=== PATIENT | male | born 1930 | race Caucasian/White ===

== ENCOUNTER 2020-09-20 14:33 | Inpatient (IN) ==
[2020-09-20] MEDS: Ascorbic Acid 500 MG TABLET PO SCH (18:35)
[2020-09-20] MEDS: PrednisoLONE Acetate 1% Opth 5 ML BOTTLE LEFT EYE SCH ×3 (18:35→22:10)
[2020-09-20] MEDS: Latanoprost 2.5 ML BOTTLE LEFT EYE SCH (21:10)
[2020-09-20] MEDS: Apixaban 5 MG TABLET PO SCH (21:10)
[2020-09-20] MEDS: Sennosides/Docusate Sodium TABLET PO SCH (21:10)
[2020-09-21] MEDS: PrednisoLONE Acetate 1% Opth 5 ML BOTTLE LEFT EYE SCH ×12 (00:02→20:42)
[2020-09-21] MEDS: Aspirin Enteric Coated 81 MG Tablet PO SCH (08:50)
[2020-09-21] MEDS: Apixaban 5 MG TABLET PO SCH ×2 (08:51→20:40)
[2020-09-21] MEDS: Ascorbic Acid 500 MG TABLET PO SCH ×2 (08:51→16:45)
[2020-09-21] MEDS: *HR* LORazepam 1 MG TABLET PO SCH (08:52)
[2020-09-21] MEDS: Sennosides/Docusate Sodium TABLET PO SCH ×2 (08:52→20:40)
[2020-09-21] MEDS: Multivit/Ca/Min/Fe/FA 1 TAB TABLET PO SCH (08:52)
[2020-09-21] MEDS ORDERED: levoFLOXacin 750 MG TABLET PO SCH (09:00)
[2020-09-21 09:18] LABS: Basophils % 0.3 %; Eosinophils # 0.1 K/mcL (0.0-0.6); Eosinophils % 1.8 %; Hematocrit 28.7 % (37.5-50.1); Hemoglobin 9.2 g/dL (12.9-16.9); Immature Granulocytes % 1.5 % (0-4); Lymphocytes # 1.1 K/mcL (0.6-4.6); Lymphocytes % 13.7 %; Mean Corpuscular HGB Conc 32.1 g/dL (31.6-35.5); Mean Corpuscular Hemoglobin 32.6 pg (28.0-33.3); Mean Corpuscular Volume 101.8 fL (83.0-100.0); Mean Platelet Volume 9.8 fL (9.4-12.4); Monocytes # 0.9 K/mcL (0.0-1.3); Monocytes % 11.8 %; Neutrophils # 5.6 K/mcL (1.6-8.9); Platelet Count 342 K/mcL (140-400); Red Blood Count 2.82 M/mcL (4.19-5.50); Segmented Neutrophils % 70.9 %; White Blood Count 7.9 K/mcL (4.3-11.1)
[2020-09-21 09:21] LABS: BUN/Creatinine Ratio 22 (6-26); Blood Urea Nitrogen 21 mg/dL (8-23); Calcium 8.5 mg/dL (8.6-10.3); Carbon Dioxide 29 mEq/L (23-29); Chloride 100 mEq/L (98-107); Glucose 122 mg/dL (70-105); Osmolality,Calculated 286 (280-300); Potassium 4.1 mEq/L (3.5-5.1); Sodium 136 mEq/L (136-145); eGFR For African Americans > 60 (> 60); eGFR For Non-African Americans > 60 (> 60)
[2020-09-21] MEDS: Ringers Solution, Lactated 1,000 ML IVC SCH (16:53)
[2020-09-21] MEDS: Carbidopa/Levodopa 25/250 TABLET PO SCH (18:59)
[2020-09-21] MEDS: Latanoprost 2.5 ML BOTTLE LEFT EYE SCH (20:41)
[2020-09-22] MEDS: PrednisoLONE Acetate 1% Opth 5 ML BOTTLE LEFT EYE SCH ×6 (01:10→10:02)
[2020-09-22] MEDS: Carbidopa/Levodopa 25/250 TABLET PO SCH ×4 (01:10→17:51)
[2020-09-22 07:29] LABS: Alanine Aminotransferase 3 Units/L (7-52); Albumin 3.1 g/dL (3.5-5.7); Albumin/Globulin Ratio 1.3 (1.1-2.2); Alkaline Phosphatase 53 Units/L (34-104); Aspartate Amino Transferase 23 Units/L (13-39); BUN/Creatinine Ratio 21 (6-26); Bilirubin,Total 0.7 mg/dL (0.3-1.0); Blood Urea Nitrogen 22 mg/dL (8-23); Calcium 8.2 mg/dL (8.6-10.3); Carbon Dioxide 27 mEq/L (23-29); Chloride 104 mEq/L (98-107); Globulin 2.4 g/dL (2.4-3.5); Glucose 101 mg/dL (70-105); Magnesium 1.9 mg/dL (1.6-2.6); Osmolality,Calculated 287 (280-300); Potassium 3.9 mEq/L (3.5-5.1); Sodium 137 mEq/L (136-145); Total Protein 5.5 g/dL (6.4-8.9); eGFR For African Americans > 60 (> 60); eGFR For Non-African Americans > 60 (> 60)
[2020-09-22] MEDS: Ringers Solution, Lactated 1,000 ML IVC SCH ×2 (09:56→17:52)
[2020-09-22] MEDS: Ascorbic Acid 500 MG TABLET PO SCH ×2 (09:57→17:51)
[2020-09-22] MEDS: Sennosides/Docusate Sodium TABLET PO SCH ×2 (09:57→20:38)
[2020-09-22] MEDS: Apixaban 5 MG TABLET PO SCH ×2 (09:58→20:38)
[2020-09-22] MEDS: *HR* LORazepam 1 MG TABLET PO SCH (09:59)
[2020-09-22] MEDS: Aspirin Enteric Coated 81 MG Tablet PO SCH (09:59)
[2020-09-22] MEDS: Multivit/Ca/Min/Fe/FA 1 TAB TABLET PO SCH (09:59)
[2020-09-22] MEDS ORDERED: Bisacodyl 10 MG RECTAL SUPPOSITORY RC ONE (10:32)
[2020-09-22] MEDS ORDERED: PrednisoLONE Acetate 1% Opth 5 ML BOTTLE LEFT EYE PRN (10:41)
[2020-09-22] MEDS ORDERED: 0.9 % Sodium Chloride 250 ML ONE (18:55)
[2020-09-22] MEDS ORDERED: 0.9 % Sodium Chloride 250 ML IVC ONE (19:02)
[2020-09-22] MEDS: Latanoprost 2.5 ML BOTTLE LEFT EYE SCH (20:38)
[2020-09-23] MEDS: Carbidopa/Levodopa 25/250 TABLET PO SCH ×4 (00:05→17:20)
[2020-09-23 07:04] LABS: Alanine Aminotransferase 3 Units/L (7-52); Albumin 3.1 g/dL (3.5-5.7); Albumin/Globulin Ratio 1.2 (1.1-2.2); Alkaline Phosphatase 64 Units/L (34-104); Aspartate Amino Transferase 22 Units/L (13-39); BUN/Creatinine Ratio 23 (6-26); Bilirubin,Total 0.7 mg/dL (0.3-1.0); Blood Urea Nitrogen 22 mg/dL (8-23); Calcium 8.2 mg/dL (8.6-10.3); Carbon Dioxide 26 mEq/L (23-29); Chloride 103 mEq/L (98-107); Globulin 2.5 g/dL (2.4-3.5); Glucose 108 mg/dL (70-105); Magnesium 1.9 mg/dL (1.6-2.6); Osmolality,Calculated 286 (280-300); Potassium 4.1 mEq/L (3.5-5.1); Sodium 136 mEq/L (136-145); Total Protein 5.6 g/dL (6.4-8.9); eGFR For African Americans > 60 (> 60); eGFR For Non-African Americans > 60 (> 60)
[2020-09-23] MEDS: Sennosides/Docusate Sodium TABLET PO SCH ×2 (09:23→19:45)
[2020-09-23] MEDS: Apixaban 5 MG TABLET PO SCH ×2 (09:23→19:45)
[2020-09-23] MEDS: *HR* LORazepam 1 MG TABLET PO SCH (09:24)
[2020-09-23] MEDS: Multivit/Ca/Min/Fe/FA 1 TAB TABLET PO SCH (09:24)
[2020-09-23] MEDS: Aspirin Enteric Coated 81 MG Tablet PO SCH (09:25)
[2020-09-23] MEDS: Ascorbic Acid 500 MG TABLET PO SCH ×2 (09:25→17:20)
[2020-09-23] MEDS: Finasteride 5 MG TABLET PO SCH (13:53)
[2020-09-23] MEDS ORDERED: polyethylene glycoL 3350 17 GM POWD.PACK PO PRN (14:56)
[2020-09-23] MEDS: Latanoprost 2.5 ML BOTTLE LEFT EYE SCH (19:45)
[2020-09-24] MEDS: Carbidopa/Levodopa 25/250 TABLET PO SCH ×4 (01:49→18:30)
[2020-09-24] MEDS: Multivit/Ca/Min/Fe/FA 1 TAB TABLET PO SCH (07:48)
[2020-09-24] MEDS: Aspirin Enteric Coated 81 MG Tablet PO SCH (07:48)
[2020-09-24] MEDS: Finasteride 5 MG TABLET PO SCH (07:49)
[2020-09-24] MEDS: *HR* LORazepam 1 MG TABLET PO SCH (07:49)
[2020-09-24] MEDS: Ascorbic Acid 500 MG TABLET PO SCH ×2 (07:49→18:29)
[2020-09-24] MEDS: Apixaban 5 MG TABLET PO SCH ×2 (07:49→21:02)
[2020-09-24] MEDS: Sennosides/Docusate Sodium TABLET PO SCH ×2 (07:59→21:02)
[2020-09-24] MEDS: Latanoprost 2.5 ML BOTTLE LEFT EYE SCH (21:06)
[2020-09-25] MEDS: Carbidopa/Levodopa 25/250 TABLET PO SCH ×4 (01:01→18:03)
[2020-09-25] MEDS: Ascorbic Acid 500 MG TABLET PO SCH ×2 (09:34→17:14)
[2020-09-25] MEDS: *HR* LORazepam 1 MG TABLET PO SCH (09:34)
[2020-09-25] MEDS: Multivit/Ca/Min/Fe/FA 1 TAB TABLET PO SCH (09:34)
[2020-09-25] MEDS: Apixaban 5 MG TABLET PO SCH ×2 (09:34→20:14)
[2020-09-25] MEDS: Sennosides/Docusate Sodium TABLET PO SCH ×2 (09:34→20:18)
[2020-09-25] MEDS: Aspirin Enteric Coated 81 MG Tablet PO SCH (09:34)
[2020-09-25] MEDS: Finasteride 5 MG TABLET PO SCH (09:34)
[2020-09-25] MEDS: Latanoprost 2.5 ML BOTTLE LEFT EYE SCH (20:26)
[2020-09-26] MEDS: Carbidopa/Levodopa 25/250 TABLET PO SCH ×4 (05:13→17:16)
[2020-09-26] MEDS: Sennosides/Docusate Sodium TABLET PO SCH ×2 (08:30→20:55)
[2020-09-26] MEDS: Multivit/Ca/Min/Fe/FA 1 TAB TABLET PO SCH (08:31)
[2020-09-26] MEDS: Ascorbic Acid 500 MG TABLET PO SCH ×2 (08:31→15:43)
[2020-09-26] MEDS: Aspirin Enteric Coated 81 MG Tablet PO SCH (08:31)
[2020-09-26] MEDS: *HR* LORazepam 1 MG TABLET PO SCH (08:32)
[2020-09-26] MEDS: Apixaban 5 MG TABLET PO SCH ×2 (08:32→20:55)
[2020-09-26] MEDS: Finasteride 5 MG TABLET PO SCH (08:32)
[2020-09-26] MEDS: Latanoprost 2.5 ML BOTTLE LEFT EYE SCH (20:55)
[2020-09-27] MEDS: Carbidopa/Levodopa 25/250 TABLET PO SCH ×4 (00:30→18:46)
[2020-09-27 07:39] LABS: Basophils % 0.3 %; Eosinophils # 0.1 K/mcL (0.0-0.6); Eosinophils % 1.7 %; Hematocrit 29.6 % (37.5-50.1); Hemoglobin 9.4 g/dL (12.9-16.9); Immature Granulocytes % 0.4 % (0-4); Lymphocytes # 1.2 K/mcL (0.6-4.6); Lymphocytes % 14.9 %; Mean Corpuscular HGB Conc 31.8 g/dL (31.6-35.5); Mean Corpuscular Hemoglobin 32.5 pg (28.0-33.3); Mean Corpuscular Volume 102.4 fL (83.0-100.0); Mean Platelet Volume 9.6 fL (9.4-12.4); Neutrophils # 5.4 K/mcL (1.6-8.9); Platelet Count 318 K/mcL (140-400); Red Blood Count 2.89 M/mcL (4.19-5.50); Red Cell Distribution Width 15.1 % (11.5-14.5); Segmented Neutrophils % 69.7 %; White Blood Count 7.8 K/mcL (4.3-11.1)
[2020-09-27 08:00] LABS: BUN/Creatinine Ratio 24 (6-26); Blood Urea Nitrogen 20 mg/dL (8-23); Calcium 8.2 mg/dL (8.6-10.3); Carbon Dioxide 26 mEq/L (23-29); Chloride 103 mEq/L (98-107); Glucose 81 mg/dL (70-105); Magnesium 1.9 mg/dL (1.6-2.6); Osmolality,Calculated 286 (280-300); Potassium 3.9 mEq/L (3.5-5.1); Sodium 137 mEq/L (136-145); eGFR For African Americans > 60 (> 60); eGFR For Non-African Americans > 60 (> 60)
[2020-09-27] MEDS: Ascorbic Acid 500 MG TABLET PO SCH ×2 (09:18→18:46)
[2020-09-27] MEDS: Sennosides/Docusate Sodium TABLET PO SCH (09:18)
[2020-09-27] MEDS: Aspirin Enteric Coated 81 MG Tablet PO SCH (09:18)
[2020-09-27] MEDS: Apixaban 5 MG TABLET PO SCH ×2 (09:19→22:02)
[2020-09-27] MEDS: Finasteride 5 MG TABLET PO SCH (09:19)
[2020-09-27] MEDS: *HR* LORazepam 1 MG TABLET PO SCH ×2 (09:19→22:01)
[2020-09-27] MEDS: Multivit/Ca/Min/Fe/FA 1 TAB TABLET PO SCH (09:19)
[2020-09-27] MEDS: Latanoprost 2.5 ML BOTTLE LEFT EYE SCH (22:08)
[2020-09-28] MEDS: Carbidopa/Levodopa 25/250 TABLET PO SCH ×4 (01:39→17:14)
[2020-09-28] MEDS: Apixaban 5 MG TABLET PO SCH ×2 (09:37→21:56)
[2020-09-28] MEDS: Aspirin Enteric Coated 81 MG Tablet PO SCH (09:37)
[2020-09-28] MEDS: Multivit/Ca/Min/Fe/FA 1 TAB TABLET PO SCH (09:37)
[2020-09-28] MEDS: Finasteride 5 MG TABLET PO SCH (09:38)
[2020-09-28] MEDS: Ascorbic Acid 500 MG TABLET PO SCH ×2 (09:39→15:34)
[2020-09-28] MEDS: *HR* LORazepam 1 MG TABLET PO SCH (21:56)
[2020-09-28] MEDS: Latanoprost 2.5 ML BOTTLE LEFT EYE SCH (22:04)
[2020-09-29] MEDS: Carbidopa/Levodopa 25/250 TABLET PO SCH ×5 (00:48→23:45)
[2020-09-29] MEDS: Multivit/Ca/Min/Fe/FA 1 TAB TABLET PO SCH (09:47)
[2020-09-29] MEDS: Ascorbic Acid 500 MG TABLET PO SCH ×2 (09:47→16:53)
[2020-09-29] MEDS: Aspirin Enteric Coated 81 MG Tablet PO SCH (09:47)
[2020-09-29] MEDS: Apixaban 5 MG TABLET PO SCH ×2 (09:47→21:29)
[2020-09-29] MEDS: Finasteride 5 MG TABLET PO SCH (09:47)
[2020-09-29] MEDS: *HR* LORazepam 1 MG TABLET PO SCH (21:29)
[2020-09-29] MEDS: Latanoprost 2.5 ML BOTTLE LEFT EYE SCH (21:29)
[2020-09-30] MEDS: Carbidopa/Levodopa 25/250 TABLET PO SCH ×3 (05:59→17:13)
[2020-09-30] MEDS: Apixaban 5 MG TABLET PO SCH ×2 (09:33→20:39)
[2020-09-30] MEDS: Finasteride 5 MG TABLET PO SCH (09:33)
[2020-09-30] MEDS: Ascorbic Acid 500 MG TABLET PO SCH ×2 (09:33→17:13)
[2020-09-30] MEDS: Multivit/Ca/Min/Fe/FA 1 TAB TABLET PO SCH (09:33)
[2020-09-30] MEDS: Aspirin Enteric Coated 81 MG Tablet PO SCH (09:34)
[2020-09-30 10:04] LABS: Basophils % 0.3 %; Eosinophils # 0.1 K/mcL (0.0-0.6); Eosinophils % 2.3 %; Hematocrit 32.2 % (37.5-50.1); Hemoglobin 10.2 g/dL (12.9-16.9); Immature Granulocytes % 0.3 % (0-4); Lymphocytes # 1.1 K/mcL (0.6-4.6); Lymphocytes % 17.8 %; Mean Corpuscular HGB Conc 31.7 g/dL (31.6-35.5); Mean Corpuscular Hemoglobin 32.6 pg (28.0-33.3); Mean Corpuscular Volume 102.9 fL (83.0-100.0); Mean Platelet Volume 9.5 fL (9.4-12.4); Monocytes # 0.8 K/mcL (0.0-1.3); Monocytes % 12.7 %; Platelet Count 276 K/mcL (140-400); Red Blood Count 3.13 M/mcL (4.19-5.50); Red Cell Distribution Width 15.9 % (11.5-14.5); Segmented Neutrophils % 66.6 %
[2020-09-30 10:17] LABS: BUN/Creatinine Ratio 25 (6-26); Blood Urea Nitrogen 25 mg/dL (8-23); Calcium 8.4 mg/dL (8.6-10.3); Carbon Dioxide 25 mEq/L (23-29); Chloride 102 mEq/L (98-107); Glucose 138 mg/dL (70-105); Osmolality,Calculated 289 (280-300); Potassium 3.9 mEq/L (3.5-5.1); Sodium 136 mEq/L (136-145); eGFR For African Americans > 60 (> 60); eGFR For Non-African Americans > 60 (> 60)
[2020-09-30] MEDS: *HR* LORazepam 1 MG TABLET PO SCH (20:39)
[2020-09-30] MEDS: Latanoprost 2.5 ML BOTTLE LEFT EYE SCH (20:44)
[2020-10-01] MEDS: Carbidopa/Levodopa 25/250 TABLET PO SCH ×3 (00:42→13:04)
[2020-10-01 07:52] VITALS: BP 102/64
[2020-10-01] MEDS: Aspirin Enteric Coated 81 MG Tablet PO SCH (07:52)
[2020-10-01] MEDS: Finasteride 5 MG TABLET PO SCH (07:52)
[2020-10-01] MEDS: Apixaban 5 MG TABLET PO SCH (07:52)
[2020-10-01] MEDS: Multivit/Ca/Min/Fe/FA 1 TAB TABLET PO SCH (07:52)
[2020-10-01] MEDS: Ascorbic Acid 500 MG TABLET PO SCH (07:53)
== END 2020-10-01 16:30 | disposition home health service (06) | DRG 560 ==
LOC: INPPIK 18:19
PROVIDERS: ADMIT Family Medicine; ATTEND Family Medicine